=== PATIENT | female | born 1965 | race Asian ===

== ENCOUNTER 2018-05-09 06:52 | Inpatient (IN) | payer BC ==
[~2018-05-09 06:52] MED LIST: BUPIVACAINE 0.5% (SDV) 30 ML, morphine SULFATE (PF) 8 MG, EPINEPHrine 0.3 MG, KETOROLAC... IRR
[2018-05-09] MEDS ORDERED: BUPIVACAINE 0.75%/DEXT (SPINAL) 2 ML INJ (07:00)
[2018-05-09] MEDS: VANCOMYCIN 1 GM (PMX) 250 ML IVPB (08:13)
[2018-05-09] MEDS: DEXAMETHASONE 1 MG TAB PO (08:13)
[2018-05-09] MEDS: GABAPENTIN 300 MG CAP PO ×2 (08:13→20:18)
[2018-05-09] MEDS: LACTATED RINGER'S 1,000 ML IV* (08:14)
[2018-05-09] MEDS: traMADol 50 MG TAB PO (08:14)
[2018-05-09] MEDS: CA CHLORIDE 10% 10 ML SYRINGE (09:44)
[2018-05-09] MEDS ORDERED: POLYMYXIN/BACITRACIN 1L IRRIG (09:44)
[2018-05-09] MEDS ORDERED: THROMBIN 5000 UNIT VIAL (09:44)
[2018-05-09] MEDS ORDERED: MAGNESIUM HYDROXIDE 30ML CUP PO (11:30)
[2018-05-09] MEDS ORDERED: KETOROLAC 15 MG INJ IV (11:30)
[2018-05-09] MEDS ORDERED: ACETAMINOPHEN 500 MG TAB PO (11:30)
[2018-05-09] MEDS ORDERED: morphine 2 MG INJ IV ×2 (11:30)
[2018-05-09] MEDS ORDERED: OXYCODONE/ACETAMINOPHEN (5/325) TAB PO ×2 (11:30)
[2018-05-09] MEDS ORDERED: ZOLPIDEM 5 MG TAB PO (11:30)
[2018-05-09 11:50] LABS: ADD MAN DIFF? NO
[2018-05-09 11:51] LABS: BASOPHIL # 0.1 10^3/ul (0.0-0.1); BASOPHILS % 0.4 % (0.0-2.0); EOSINOPHILS % 0.4 % (0.0-7.0); HEMATOCRIT 38.3 % (37.0-47.0); HEMOGLOBIN 12.1 g/dl (12.0-16.0); LYMPHOCYTES # 2.2 10^3/ul (0.8-2.9); LYMPHOCYTES % 19.4 % (15.0-51.0); MEAN CORPUSCULAR HGB CONC 31.6 g/dl (32.0-37.0); MEAN CORPUSCULAR VOLUME 91.8 fl (82.0-101.0); MEAN PLATELET VOLUME 8.7 fl (7.4-10.4); MONOCYTE # 0.3 10^3/ul (0.3-0.9); MONOCYTES % 2.7 % (0.0-11.0); NEUTROPHIL # 8.5 10^3/ul (1.6-7.5); NEUTROPHILS % 76.1 % (39.0-77.0); PLATELET COUNT 252 10^3/UL (140-415); RED BLOOD COUNT 4.17 10^6/ul (4.20-5.40); RED CELL DISTRIBUTION WIDTH 12.3 % (11.5-14.5)
[2018-05-09 11:51] LABS: WHITE BLOOD COUNT 11.2 10^3/ul (4.8-10.8)
[2018-05-09] MEDS ORDERED: METOCLOPRAMIDE 10 MG INJ IV (12:00)
[2018-05-09] MEDS ORDERED: DIPHENHYDRAMINE 50 MG INJ IV (12:00)
[2018-05-09] MEDS ORDERED: MEPERIDINE 25 MG INJ IV (12:00)
[2018-05-09] MEDS ORDERED: HYDROmorphONE 1 MG/5 ML IV SYRINGE IV ×2 (12:00)
[2018-05-09] MEDS ORDERED: FENTAnyl 50 MCG/ML VIAL IV (12:00)
[2018-05-09] MEDS ORDERED: ONDANSETRON 4 MG INJ IV (12:00)
[2018-05-09] MEDS: TRANEXAMIC ACID 1,000 MG in DEXTROSE 5% 100 ML IV (12:08)
[2018-05-09] MEDS: LACTATED RINGER'S 1,000 ML IV ×2 (13:02→20:18)
[2018-05-09] MEDS: DEXAMETHASONE 2 MG TAB PO ×3 (13:12→23:29)
[2018-05-09] MEDS: SOD CHLORIDE 0.9% 100 ML, TRANEXAMIC ACID 3,000 MG IRR (13:42)
[2018-05-09] MEDS: TRANEXAMIC ACID 1,000 MG in DEXTROSE 5% 100 ML IVPB (13:43)
[2018-05-09] MEDS: DIPHENHYDRAMINE 50 MG INJ IV (17:35)
[2018-05-09] MEDS: ONDANSETRON 4 MG INJ IV ×2 (17:35→23:29)
[2018-05-09] MEDS ORDERED: morphine SULFATE/PF (10 MG/10 ML) INJ (19:32)
[2018-05-09] MEDS ORDERED: ONDANSETRON 4 MG INJ (19:32)
[2018-05-09] MEDS ORDERED: LIDOCAINE 2% (SDV) 5 ML INJ (19:32)
[2018-05-09] MEDS ORDERED: ROCURONIUM 50 MG INJ (19:32)
[2018-05-09] MEDS ORDERED: PROPOFOL 20 ML (19:32)
[2018-05-09] MEDS ORDERED: FENTAnyl 50 MCG/ML VIAL (19:32)
[2018-05-09] MEDS ORDERED: ETOMIDATE 20 MG INJ (19:32)
[2018-05-09] MEDS ORDERED: MIDAZOLAM 1 MG/ML 2 ML INJ (19:32)
[2018-05-09] MEDS: SENNA/DOCUSATE NA (8.6MG/50MG) TAB PO (20:18)
[2018-05-09] MEDS: VANCOMYCIN 500MG/NS (PMX) 100 ML IVPB (21:37)
[2018-05-10 05:42] LABS: ADD MAN DIFF? NO
[2018-05-10 05:49] LABS: WHITE BLOOD COUNT 12.1 10^3/ul (4.8-10.8)
[2018-05-10 05:49] LABS: BASOPHILS % 0.1 % (0.0-2.0); HEMATOCRIT 33.3 % (37.0-47.0); HEMOGLOBIN 10.5 g/dl (12.0-16.0); LYMPHOCYTES # 0.9 10^3/ul (0.8-2.9); LYMPHOCYTES % 7.1 % (15.0-51.0); MEAN CORPUSCULAR HEMOGLOBIN 29.2 pg (29.0-33.0); MEAN CORPUSCULAR HGB CONC 31.5 g/dl (32.0-37.0); MEAN CORPUSCULAR VOLUME 92.5 fl (82.0-101.0); MEAN PLATELET VOLUME 9.7 fl (7.4-10.4); MONOCYTE # 0.6 10^3/ul (0.3-0.9); NEUTROPHIL # 10.6 10^3/ul (1.6-7.5); NEUTROPHILS % 87.4 % (39.0-77.0); PLATELET COUNT 205 10^3/UL (140-415); RED CELL DISTRIBUTION WIDTH 12.3 % (11.5-14.5)
[2018-05-10] MEDS: DEXAMETHASONE 2 MG TAB PO (05:59)
[2018-05-10] MEDS: LACTATED RINGER'S 1,000 ML IV* (06:00)
[2018-05-10] MEDS: LACTATED RINGER'S 1,000 ML IV (07:23)
[2018-05-10] MEDS: SENNA/DOCUSATE NA (8.6MG/50MG) TAB PO (08:37)
[2018-05-10] MEDS: ASPIRIN 81 MG TAB PO (08:37)
[2018-05-10] MEDS: VANCOMYCIN 500MG/NS (PMX) 100 ML IVPB (09:36)
== END 2018-05-10 16:05 | disposition home or self-care (01) | DRG 470 ==
LOC: REC 06:52 → MS1 12:44
PROVIDERS: Orthopaedic Surgery
PROC: 0SRB04A Replacement of Left Hip Joint with Ceramic on Polyethylene Synthetic Substitute, Uncemented, Open Approach (ICD-10-PCS; principal; 2018-05-09 09:30)
DX: M16.12 Unilateral primary osteoarthritis, left hip (principal); E66.01 Morbid (severe) obesity due to excess calories; Z68.35 Body mass index [BMI] 35.0-35.9, adult
CPT/HCPCS: 72170; 73530; 84703; 85025; 86999; 87086; 97110; 97116; 97161